=== PATIENT | female | born 1955 | race Two or more races ===

== ENCOUNTER 2019-05-23 15:04 | Emergency (ER) | payer MEDICARE, OTHER ==
[2019-05-23] MEDS ORDERED: DIAZEPAM 5 MG TABLET PO ONE (15:52)
--- NOTE | 2019-05-23 15:53 | ER Document Report ---
HPI - HPI Time Seen by Provider: 05/23/19 15:45 Pain Level: 4 Notes: Otherwise healthy 63-year-old female presenting to the emergency department chief complaint of pain at the base of her neck that radiates down the right arm into her hand. She states that she has a history of similar symptoms however this is worse than usual. She states she usually takes chronic pain medications. She is visiting from out of town to care for her sister who just had surgery. She reports that keeping her arm across her chest helps with the pain, she states pain is worse when she lets her arm down. Denies any recent trauma or injury. - REPRODUCTIVE Reproductive: DENIES: : Past Medical History - General Information source: Patient - Social History Smoking Status: Never Smoker Chew tobacco use (# tins/day): No Frequency of alcohol use: None Drug Abuse: None Family History: Reviewed & Not Pertinent Patient has suicidal ideation: No Patient has homicidal ideation: No - Past Medical History Cardiac Medical History: Reports: Hx Hypertension Surgical Hx: Negative - Immunizations Immunizations up to date: Yes Vertical Provider Document - CONSTITUTIONAL Notes: PHYSICAL EXAMINATION: GENERAL: Well-appearing, well-nourished and in no acute distress. HEAD: Atraumatic, normocephalic. EYES: Pupils equal round extraocular movements intact, conjunctiva are normal. ENT: Nares patent NECK: Normal range of motion LUNGS: No respiratory distress Musculoskeletal: Normal range of motion, no nuchal rigidity. No vertebral tenderness, step-off or deformity. Tenderness to palpation along right side of neck extending down into right scapular area. Strong pulses distally. Mildly limited range of motion due to pain. Cap refill less than 3 seconds. NEUROLOGICAL: Normal speech, normal gait. PSYCH: Normal mood, normal affect. SKIN: Warm, Dry, normal turgor, no rashes or lesions noted. - INFECTION CONTROL TRAVEL OUTSIDE OF THE [place] IN LAST 30 DAYS: No Course - Re-evaluation Re-evalutation: Patient presenting to the emergency department acute on chronic neck pain that radiates down into her arm. She denies any new injury. She was given a dose of Valium here in the emergency department, she reports this helped with her pain. Patient will be discharged home in stable condition on some muscle relaxers and pain medication. She will follow-up with her primary care provider. Discharge - Discharge Clinical Impression: Cervical paraspinal muscle spasm Condition: Stable Disposition: HOME, SELF-CARE Additional Instructions: You were seen in the emergency department today with concerns for some neck pain. I believe this is being caused by a musculoskeletal strain. Please take medications as prescribed. Unfortunately the Percocet would not go through to the pharmacy electronically. The Robaxin did go through electronically. Please have them call the emergency department if there are any concerns with this. The direct line to my desk is [phone]. Prescriptions: Oxycodone HCl/Acetaminophen [Percocet 5-325 mg Tablet] 1 tab PO Q4H PRN #12 tablet PRN Reason: Methocarbamol [Robaxin 750 mg Tablet] 750 mg PO Q4 #30 tablet
[2019-05-23 17:40] VITALS: BP 154/84
== END 2019-05-23 17:39 | disposition home or self-care (01) ==
LOC: ER 15:04
DX: M54.2 Cervicalgia (principal); M62.830 Muscle spasm of back; M79.601 Pain in right arm; I10 Essential (primary) hypertension
CPT/HCPCS: 99283